=== PATIENT | female | born 1995 | race Caucasian/White ===

== ENCOUNTER 2022-03-04 03:25 | Inpatient (IN) | payer MEDICAID ==
[~2022-03-04] VITALS: Ht 162.6 cm; Wt 68.0 kg
[2022-03-04] MEDS ORDERED: BLOOD SUGAR DIAGNOSTIC STRIP TEST ONE (04:30)
[2022-03-04] MEDS ORDERED: TERBUTALINE SULFATE 1MG/ML VIAL SUBCUT PRN (04:30)
[2022-03-04] MEDS ORDERED: ONDANSETRON HCL 4MG/2ML INJ IV PRN (04:30)
[2022-03-04] MEDS ORDERED: FENTANYL CITRATE/PF 50MCG/ML 2ML VIAL IV PRN (06:09)
[2022-03-04] MEDS ORDERED: RHO(D) IMMUNE GLOBULIN 300 MCG/SYR IM ONE (06:15)
[2022-03-04] MEDS ORDERED: BUTORPHANOL TARTRATE 2 MG/ML VIAL IV PRN (06:30)
[2022-03-04] MEDS ORDERED: LABETALOL HCL 5MG/ML VIAL 20ML IV PRN ×5 (07:15)
[2022-03-04] MEDS ORDERED: HYDRALAZINE 20MG/ML VIAL IV PRN ×4 (07:15)
[2022-03-04] MEDS ORDERED: NIFEDIPINE 10MG CAPSULE PO PRN (07:15)
[2022-03-04] MEDS ORDERED: AMPICILLIN 2GM in NS 100ML 100 ML IV SCH (07:30)
[2022-03-04] MEDS ORDERED: OXYTOCIN 30 UNITS/500ML NS PMX 500 ML IV SCH (07:30)
[2022-03-04] MEDS ORDERED: MAGNESIUM 4 G PREMIX 100 ML IV ONE (07:30)
[2022-03-04 07:46] LABS: CLARITY URINE CLEAR (CLEAR); COLOR URINE YELLOW (YELLOW); KETONES URINE 1+ (NEGATIVE); LEUKOCYTE ESTERASE URINE NEGATIVE (NEGATIVE); NITRITE URINE NEGATIVE (NEGATIVE); OCCULT BLOOD URINE 1+ (NEGATIVE); PH URINE 6.5 (4.5-8.0); PROTEIN URINE 1+ (NEGATIVE); SPECIFIC GRAVITY URINE 1.012 (1.005-1.030); UROBILINOGEN URINE 0.2 E.U./dL (0.2-1.0)
[2022-03-04] MEDS ORDERED: LACTATED RINGERS 1,000 ML IV SCH (08:00)
[2022-03-04] MEDS: MAGNESIUM 20 G PREMIX (L & D) 500 ML IV SCH ×2 (08:28→19:52)
[2022-03-04 08:30] LABS: *AMPHETAMINES SCREEN URINE NEGATIVE (NEGATIVE); *BARBITURATES SCREEN URINE NEGATIVE (NEGATIVE); *BENZODIAZEPINES SCREEN URINE NEGATIVE (NEGATIVE); *COCAINE SCREEN URINE NEGATIVE (NEGATIVE); CANNABINOID URINE SCREEN NEGATIVE (NEGATIVE); METHADONE URINE SCREEN NEGATIVE (NEGATIVE); OPIATES URINE SCREEN NEGATIVE (NEGATIVE); PHENCYCLIDINE URINE SCREEN NEGATIVE (NEGATIVE)
[2022-03-04 08:43] LABS: HEMATOCRIT. 38.9 % (36.0-48.0); HEMOGLOBIN. 13.4 g/dL (12.0-16.0); MEAN CORPUSCULAR HEMOGLOBIN 30.9 pg (28.0-32.0); MEAN CORPUSCULAR VOLUME 89.3 fL (81.0-99.0); MEAN PLATELET VOLUME 10.2 fl (7.4-10.4); PLATELET 240 x1000/uL (130-400); RED BLOOD CELL COUNT 4.35 mill/uL (4.2-5.4); RED CELL DISTRIBUTION WIDTH 13.3 % (11.6-14.6)
[2022-03-04 08:44] LABS: HEMATOCRIT. 38.4 % (36.0-48.0); HEMOGLOBIN. 13.5 g/dL (12.0-16.0); MEAN CORPUSCULAR HEMOGLOBIN 31.3 pg (28.0-32.0); MEAN CORPUSCULAR VOLUME 89.1 fL (81.0-99.0); MEAN PLATELET VOLUME 10.4 fl (7.4-10.4); PLATELET 236 x1000/uL (130-400); RED BLOOD CELL COUNT 4.31 mill/uL (4.2-5.4); RED CELL DISTRIBUTION WIDTH 13.2 % (11.6-14.6)
[2022-03-04 08:55] LABS: CHLORIDE 104 mEq/L (98-107)
[2022-03-04 09:00] LABS: D-DIMER 5.06 mg/L FEU (<0.50); INR 0.9; PARTIAL THROMBOPLASTIN TIME 27.1 sec (23.4-31.0); PROTHROMBIN TIME 9.3 sec (9.6-11.0)
[2022-03-04] MEDS ORDERED: METHYLERGONOVINE MALEATE 0.2 MG/ML ONE (09:45)
[2022-03-04 09:50] LABS: PLATELET ESTIMATE NORMAL
[2022-03-04] MEDS ORDERED: LIDOCAINE HCL 1% 20ML VIAL (Pyxis) INJ ONE ×2 (09:54→10:05)
[2022-03-04 09:55] LABS: PLATELET ESTIMATE NORMAL
[2022-03-04 13:15] VITALS: BP 128/72
[2022-03-04] MEDS ORDERED: AMPICILLIN 1,000 MG in SODIUM CHLORIDE 0.9% 50 ML IV SCH (14:00)
[2022-03-04 15:30] VITALS: BP 121/51
[2022-03-04 20:00] VITALS: BP 110/63
[2022-03-04] MEDS ORDERED: MAGNESIUM 20 G PREMIX (L & D) 500 ML IV SCH (20:30)
[2022-03-04 22:00] VITALS: BP 114/60
[2022-03-04] MEDS ORDERED: BENZOCAINE/LANOLIN/ALOE VERA SPRAY TOP PRN (22:15)
[2022-03-04] MEDS: IBUPROFEN 800MG TABLET PO PRN (22:52)
[2022-03-05] VITALS: BP 105/62
[2022-03-05] MEDS ORDERED: LACTATED RINGERS 1,000 ML IV PRN (00:46)
[2022-03-05 02:00] VITALS: BP 98/54
[2022-03-05 04:00] VITALS: BP 99/50
[2022-03-05] MEDS: IBUPROFEN 800MG TABLET PO PRN (05:49)
[2022-03-05 07:42] LABS: BASOPHILS % 0.3 % (0.0-2.0); EOSINOPHILS % 0.4 % (0.0-5.0); HEMATOCRIT. 32.8 % (36.0-48.0); HEMOGLOBIN. 11.5 g/dL (12.0-16.0); MEAN CORPUSCULAR HEMOGLOBIN 31.8 pg (28.0-32.0); MEAN CORPUSCULAR VOLUME 90.7 fL (81.0-99.0); MEAN PLATELET VOLUME 10.5 fl (7.4-10.4); MONOCYTES % 6.4 % (2.0-8.0); NEUTROPHILS % 77.9 % (40.0-76.0); PLATELET 202 x1000/uL (130-400); RED BLOOD CELL COUNT 3.62 mill/uL (4.2-5.4); RED CELL DISTRIBUTION WIDTH 13.3 % (11.6-14.6)
[2022-03-05 09:00] VITALS: BP 93/48
[2022-03-05 17:00] VITALS: BP 96/47
[2022-03-05 20:00] VITALS: BP 110/69
[2022-03-06] MEDS: IBUPROFEN 800MG TABLET PO PRN (01:40)
[2022-03-06 04:00] VITALS: BP 104/56
[2022-03-06] MEDS ORDERED: FERR325T6 MT (07:52)
[2022-03-06] MEDS ORDERED: IBUP-2030 PO (07:52)
[2022-03-06] MEDS ORDERED: MULT-1146 MT (07:52)
[2022-03-06 08:00] VITALS: BP 108/66
== END 2022-03-06 13:15 | disposition home or self-care (01) | DRG 560 ==
LOC: OBSVTOIN 03:25 → 8 EST LDRP 03:25 → 8EST 13:51
PROVIDERS: ADMIT Obstetrics & Gynecology; ATTEND Obstetrics & Gynecology
PROC: 10E0XZZ Delivery of Products of Conception, External Approach (ICD-10-PCS; principal; 2022-03-04)
DX: O13.4 Gestational [pregnancy-induced] hypertension without significant proteinuria, complicating childbirth (principal); Z37.0 Single live birth; D62 Acute posthemorrhagic anemia; O69.81X0 Labor and delivery complicated by cord around neck, without compression, not applicable or unspecified; Z20.822 Contact with and (suspected) exposure to COVID-19; Z3A.37 37 weeks gestation of pregnancy
CPT/HCPCS: 36415; 76805; 76818; 80053; 80305; 81003; 83735; 84550; 85025; 85379; 85384; 86592; 86703; 86762; 86850; 86900; 87340; 87426; 99281; J0290; J0595; J2210; J3475; J3490; J7120; A4315; J2590